=== PATIENT | female | born 1995 | race Hispanic/Latino ===

== ENCOUNTER 2020-04-04 22:09 | Emergency (ER) | payer BC ==
[~2020-04-04] VITALS: Ht 152.4 cm; Wt 84.8 kg
[2020-04-04 22:42] LABS: CLARITY,URINE SL CLOUDY (CLEAR); COLOR,URINE YELLOW (YELLOW); KETONES,URINE NEGATIVE (NEGATIVE); LEUKOCYTE ESTERASE ,URINE NEGATIVE (NEGATIVE); NITRITE,URINE NEGATIVE (NEGATIVE); PROTEIN,URINE DIPSTICK NEGATIVE (NEGATIVE)
[2020-04-04 22:43] LABS: PREGNANCY TEST, URINE POSITIVE (NEGATIVE)
[2020-04-04 22:49] LABS: AMORPHOUS SEDIMENT,URINE MODERATE (FEW); BACTERIA,URINE FEW /HPF; EPITHELIAL CELLS,URINE RARE /LPF; WBC,URINE (MAN) 0-5 /HPF (0-5)
== END 2020-04-05 00:10 | disposition home or self-care (01) ==
LOC: ER 22:20
DX: O20.0 Threatened abortion (principal); O23.41 Unspecified infection of urinary tract in pregnancy, first trimester
CPT/HCPCS: 81001; 81025; 99283

== ENCOUNTER 2021-10-07 11:05 | Emergency (ER) | payer SELFPAY ==
[~2021-10-07] VITALS: Ht 152.4 cm; Wt 84.8 kg
== END 2021-10-07 13:23 | disposition home or self-care (01) ==
LOC: ER 12:07
DX: R05.9 Cough, unspecified (principal); J02.9 Acute pharyngitis, unspecified; Z20.822 Contact with and (suspected) exposure to COVID-19
CPT/HCPCS: 71045; 83518; 87070; 99283; U0002